=== PATIENT | female | born 1960 | race Caucasian/White ===

== ENCOUNTER → 2017-03-14 | Outpatient (CLI) | payer BC ==
[~2017-03-14] MED LIST: ACID REDUCER 1150 MG PO; ADVANCED CALCI1 EAC1 PO; CATAPRES0.1 MG PO; EXCEDRIN MIGRA1 EAC3 PO; IRON325 MG PO; JANUMET 50/11 TABLET PO; KLONOPIN0.5 M1 PO; LIPITOR40 MG PO; MOTRIN IB200 MG PO; TOPROL XL50 MG PO; TYLENOL REGULA325 MG PO; VASOTEC20 MG PO; WOMEN'S DAILY1 EAC1 PO
== END | disposition home or self-care (01) ==
LOC: CDC 10:43
DX: Z01.810 Encounter for preprocedural cardiovascular examination (principal)
CPT/HCPCS: 93000

== ENCOUNTER → 2017-03-16 | Outpatient (CLI) | payer BC ==
[~2017-03-16] VITALS: Ht 170.2 cm; Wt 74.8 kg
[2017-03-16 08:52] LABS: POINT-OF-CARE METER ID UU14107333
== END | disposition home or self-care (01) ==
LOC: AMB 07:45
PROVIDERS: Internal Medicine
PROC: 0DJD8ZZ Inspection of Lower Intestinal Tract, Via Natural or Artificial Opening Endoscopic (ICD-10-PCS; principal; 2017-03-16)
DX: Z12.11 Encounter for screening for malignant neoplasm of colon (principal); I10 Essential (primary) hypertension; E11.9 Type 2 diabetes mellitus without complications; K21.9 Gastro-esophageal reflux disease without esophagitis; Z79.82 Long term (current) use of aspirin
CPT/HCPCS: 82948; J2250; J3010

== ENCOUNTER 2017-03-19 22:20 | Inpatient (IN) | payer BC ==
[~2017-03-19] VITALS: Ht 170.2 cm; Wt 74.8 kg
[2017-03-20 07:08] VITALS: BP 158/79
[2017-03-20 07:30] LABS: POINT-OF-CARE METER ID UU14174212
[2017-03-20 12:02] LABS: POINT-OF-CARE METER ID UU13113675
[2017-03-20 13:54] VITALS: BP 198/101
[2017-03-20 16:25] VITALS: BP 198/99
[2017-03-20 17:01] LABS: POINT-OF-CARE METER ID UU14162508
[2017-03-20 19:58] VITALS: BP 157/78
[2017-03-20 23:03] LABS: POINT-OF-CARE METER ID UU14208750
[2017-03-21 00:08] VITALS: BP 138/86
[2017-03-21 04:34] VITALS: BP 149/69
[2017-03-21 07:10] LABS: BASOPHIL COUNT 0.1 K/uL (0-0.1); EOSINOPHIL (%) 0 % (0-5); HEMATOCRIT 39.2 % (36.0-46.0); IMMATURE GRANULOCYTE (%) 0.5 % (0.0-0.7); IMMATURE GRANULOCYTE COUNT 0.1 K/uL; INSTRUMENT ABS NEUTROPHIL CT 13.9 K/uL; LYMPHOCYTE COUNT 1.4 K/uL (1.0-2.8); MCH 31.5 PG (29.0-34.0); MCHC 35.7 G/DL (30.0-36.0); MCV 88.1 FL (83-99); MEAN PLAT.VOLUME 10.6 uM^3 (9.5-12.4); MONOCYTE (%) 9.5 % (3-12); MONOCYTE COUNT 1.6 K/uL (0-0.8); NEUTROPHIL (%) 81.6 % (45-76); NEUTROPHIL COUNT 13.9 K/uL (1.8-6.4); PLATELET COUNT 321 K/uL (156-360); RBC DIS.WIDTH-CV 12.6 % (11.8-14.6); RBC DIS.WIDTH-SD 40.8 % (39-53); RED BLOOD COUNT 4.45 M/uL (3.80-5.20); WHITE BLOOD COUNT 17.1 K/uL (4.1-10.2)
[2017-03-21 07:25] VITALS: BP 167/85
[2017-03-21 07:38] LABS: ANION GAP 8 MEQ/L (2-14); CHLORIDE 96 MEQ/L (99-109); GFR ESTIMATE (CALCULATED) > 59 mL/min/; GLUCOSE 147 mg/dL (70-99); POTASSIUM 4.5 MEQ/L (3.7-5.4); SAMPLE HEMOLYSIS CHECK 0; SAMPLE ICTERIC CHECK 0; SAMPLE LIPEMIA CHECK 0; UREA NITROGEN (BUN) 8 mg/dL (9-23)
[2017-03-21 07:39] LABS: SODIUM 130 MEQ/L (136-147)
[2017-03-21 11:15] LABS: POINT-OF-CARE METER ID UU14208750
[2017-03-21 12:50] LABS: ANION GAP 8 MEQ/L (2-14); CHLORIDE 96 MEQ/L (99-109); GFR ESTIMATE (CALCULATED) > 59 mL/min/; GLUCOSE 155 mg/dL (70-99); POTASSIUM 4.1 MEQ/L (3.7-5.4); SAMPLE HEMOLYSIS CHECK 0; SAMPLE ICTERIC CHECK 0; SAMPLE LIPEMIA CHECK 0; SODIUM 129 MEQ/L (136-147); UREA NITROGEN (BUN) 7 mg/dL (9-23)
[2017-03-21 15:20] VITALS: BP 198/80
[2017-03-21 17:02] LABS: ADD MIUA? YES; BILIRUBIN NEGATIVE; BLOOD MODERATE; COLOR YELLOW ((YELLOW)); GLUCOSE (STRIP) 50; KETONES NEGATIVE; LEUKOCYTES NEGATIVE; NITRITE NEGATIVE; PROTEIN (STRIP) NEGATIVE; SPECIFIC GRAVITY 1.015 (1.000-1.030); UROBILINOGEN 0.2 MG/DL (0.2-1.0)
[2017-03-21 17:11] LABS: BACTERIA RARE /HPF; EPITHELIAL CELLS RARE /HPF; MUCUS TRACE /LPF; RED BLOOD CELLS 0-5 /HPF (0-5); WHITE BLOOD CELLS 0-5 /HPF (0-5)
[2017-03-21 20:20] VITALS: BP 181/88
[2017-03-21 21:34] LABS: POINT-OF-CARE METER ID UU14208750
[2017-03-21 23:25] VITALS: BP 140/75
[2017-03-22 03:13] VITALS: BP 131/67
[2017-03-22 06:46] LABS: BASOPHIL COUNT 0.1 K/uL (0-0.1); EOSINOPHIL (%) 0.3 % (0-5); HEMATOCRIT 38.5 % (36.0-46.0); IMMATURE GRANULOCYTE (%) 0.4 % (0.0-0.7); IMMATURE GRANULOCYTE COUNT 0.1 K/uL; INSTRUMENT ABS NEUTROPHIL CT 11.1 K/uL; LYMPHOCYTE COUNT 1.6 K/uL (1.0-2.8); MCH 30.6 PG (29.0-34.0); MCHC 35.1 G/DL (30.0-36.0); MCV 87.3 FL (83-99); MEAN PLAT.VOLUME 10.8 uM^3 (9.5-12.4); MONOCYTE COUNT 1.6 K/uL (0-0.8); NEUTROPHIL (%) 76.6 % (45-76); NEUTROPHIL COUNT 11.1 K/uL (1.8-6.4); PLATELET COUNT 335 K/uL (156-360); RBC DIS.WIDTH-CV 12.6 % (11.8-14.6); RBC DIS.WIDTH-SD 40.3 % (39-53); RED BLOOD COUNT 4.41 M/uL (3.80-5.20); WHITE BLOOD COUNT 14.5 K/uL (4.1-10.2)
[2017-03-22 07:03] LABS: POINT-OF-CARE METER ID UU14208750
[2017-03-22 07:15] LABS: ALKALINE PHOSPHATASE 59 IU/L (3-129); ANION GAP 8 MEQ/L (2-14); CHLORIDE 96 MEQ/L (99-109); GFR ESTIMATE (CALCULATED) > 59 mL/min/; GLUCOSE 134 mg/dL (70-99); POTASSIUM 4.2 MEQ/L (3.7-5.4); SAMPLE HEMOLYSIS CHECK 1; SAMPLE ICTERIC CHECK 0; SAMPLE LIPEMIA CHECK 0; SODIUM 130 MEQ/L (136-147); TOTAL BILIRUBIN 1.1 MG/DL (0.0-1.0); UREA NITROGEN (BUN) 8 mg/dL (9-23); URIC ACID 2.8 mg/dL (3.1-9.2)
[2017-03-22 07:30] VITALS: BP 145/76
[2017-03-22 10:58] LABS: UR CREATININE CONCENTRATION 58.4 MG/DL
[2017-03-22 12:02] LABS: POINT-OF-CARE METER ID UU14208750
[2017-03-22 15:20] VITALS: BP 155/81
[2017-03-22 16:18] LABS: POINT-OF-CARE METER ID UU14208750; POINT-OF-CARE USER ID PUTDRM
[2017-03-22 22:10] LABS: POINT-OF-CARE METER ID UU14314084
[2017-03-22 23:50] VITALS: BP 146/71
[2017-03-23 06:45] LABS: BASOPHIL COUNT 0.1 K/uL (0-0.1); EOSINOPHIL (%) 1.1 % (0-5); EOSINOPHIL COUNT 0.1 K/uL (0-0.3); HEMATOCRIT 40.1 % (36.0-46.0); IMMATURE GRANULOCYTE (%) 0.3 % (0.0-0.7); INSTRUMENT ABS NEUTROPHIL CT 9.7 K/uL; LYMPHOCYTE COUNT 1.8 K/uL (1.0-2.8); MCH 29.9 PG (29.0-34.0); MCHC 33.9 G/DL (30.0-36.0); MCV 88.1 FL (83-99); MEAN PLAT.VOLUME 10.2 uM^3 (9.5-12.4); MONOCYTE (%) 10.8 % (3-12); MONOCYTE COUNT 1.4 K/uL (0-0.8); NEUTROPHIL (%) 73.3 % (45-76); NEUTROPHIL COUNT 9.7 K/uL (1.8-6.4); PLATELET COUNT 348 K/uL (156-360); RBC DIS.WIDTH-CV 12.5 % (11.8-14.6); RBC DIS.WIDTH-SD 40.7 % (39-53); RED BLOOD COUNT 4.55 M/uL (3.80-5.20); WHITE BLOOD COUNT 13.2 K/uL (4.1-10.2)
[2017-03-23 07:12] LABS: ANION GAP 9 MEQ/L (2-14); CHLORIDE 102 MEQ/L (99-109); GFR ESTIMATE (CALCULATED) > 59 mL/min/; GLUCOSE 131 mg/dL (70-99); POTASSIUM 4.2 MEQ/L (3.7-5.4); SAMPLE HEMOLYSIS CHECK 0; SAMPLE ICTERIC CHECK 0; SAMPLE LIPEMIA CHECK 0; UREA NITROGEN (BUN) 8 mg/dL (9-23)
[2017-03-23 07:17] LABS: SODIUM 138 MEQ/L (136-147)
[2017-03-23 07:45] VITALS: BP 142/72
[2017-03-23 11:43] LABS: POINT-OF-CARE METER ID UU14208750
== END 2017-03-23 13:45 | disposition home or self-care (01) | DRG 742 ==
LOC: SDC → ENRESERV 22:20 → 2SOUTH 03-20 05:31 → EDSTATUS 03-20 11:03 → 2SOUTH 03-20 11:04 → ENRESERV 03-20 12:58 → 2EAST 03-20 13:22 → 2SOUTH 03-20 16:11 → SDC 03-20 16:23 → 2EAST 03-23 13:45
PROVIDERS: Internal Medicine Nephrology; Obstetrics & Gynecology Gynecology
PROC: 0DQ80ZZ Repair Small Intestine, Open Approach (ICD-10-PCS; principal; 2017-03-20)
PROC: 0UTC0ZZ Resection of Cervix, Open Approach (ICD-10-PCS; principal; 2017-03-20)
PROC: 0UT70ZZ Resection of Bilateral Fallopian Tubes, Open Approach (ICD-10-PCS; principal; 2017-03-20)
PROC: 0USG0ZZ Reposition Vagina, Open Approach (ICD-10-PCS; principal; 2017-03-20)
PROC: 0UT20ZZ Resection of Bilateral Ovaries, Open Approach (ICD-10-PCS; principal; 2017-03-20)
PROC: 0UT90ZZ Resection of Uterus, Open Approach (ICD-10-PCS; principal; 2017-03-20)
PROC: 0JUC0JZ Supplement of Pelvic Region Subcutaneous Tissue and Fascia with Synthetic Substitute, Open Approach (ICD-10-PCS; principal; 2017-03-20)
DX: N81.3 Complete uterovaginal prolapse (principal); K91.81 Other intraoperative complications of digestive system; T28.2XXA Burn of other parts of alimentary tract, initial encounter; Y65.8 Other specified misadventures during surgical and medical care; E22.2 Syndrome of inappropriate secretion of antidiuretic hormone; T45.0X5A Adverse effect of antiallergic and antiemetic drugs, initial encounter; D25.1 Intramural leiomyoma of uterus; E11.9 Type 2 diabetes mellitus without complications; E78.5 Hyperlipidemia, unspecified; I10 Essential (primary) hypertension; K21.9 Gastro-esophageal reflux disease without esophagitis; N95.2 Postmenopausal atrophic vaginitis; J30.9 Allergic rhinitis, unspecified; M19.90 Unspecified osteoarthritis, unspecified site; E66.3 Overweight; Z68.27 Body mass index [BMI] 27.0-27.9, adult; Z80.0 Family history of malignant neoplasm of digestive organs; Z80.7 Family history of other malignant neoplasms of lymphoid, hematopoietic and related tissues; Z82.49 Family history of ischemic heart disease and other diseases of the circulatory system; Z83.3 Family history of diabetes mellitus
CPT/HCPCS: 71010; 80048; 80048 91; 80053; 81003; 82533 91; 82570; 82948; 83935; 84100; 84156; 84300; 84443; 84550; 85025; 87086; 88304; 88307; C1781; J0330; J0690; J1100; J1170; J1650; J1885; J1940; J2001; J2405; J2710; J2765; J2795; J3010; J3475; J7120